=== PATIENT | male | born 1950 | race Caucasian/White ===

== ENCOUNTER → 2020-07-22 10:13 | Outpatient (CLI) | payer MEDICARE, SELFPAY ==
[2020-07-22 11:23] LABS: Coronavirus 19 IgG Antibody Positive (Negative); Coronavirus 19 IgM Antibody Negative (Negative)
== END ==
PROVIDERS: Visit Provider Internal Medicine Gastroenterology
DX: Z01.812 Encounter for preprocedural laboratory examination (principal); Z20.822 Contact with and (suspected) exposure to COVID-19; Z86.16 Personal history of COVID-19; Z12.11 Encounter for screening for malignant neoplasm of colon; K92.1 Melena
CPT/HCPCS: 36415; 86328

== ENCOUNTER 2020-07-23 07:16 | Day surgery (SDC) | payer MEDICARE, SELFPAY ==
[2020-07-20 16:08] VITALS: BMI 32.9
[2020-07-23 07:36] VITALS: BP 129/75; PULSE 65; RESP 18; TEMP 36.2; O2SAT 97
[2020-07-23 07:48] LABS: POC Glucose,Bedside 145 (70-110)
[2020-07-23 08:51] VITALS: O2SAT 97
--- NOTE | 2020-07-23 08:55 | P.PN_ITS ---
[facility] Anesthesia Checklist - Patient Identification Patient Identification: Arm Band - Structural Data Admitted From: Home Planned Operative Procedure/s: colonoscopy Consent for Planned Operative Procedure(s) Verified: Yes Verified Documents: Surgical Consent, History and Physical - NPO Status Verified Time NPO: 00:00 - Additional verifications Anesthesia Reactions: No - Airway Assessment C-Spine Mobility Assessed: Yes (mp2) TMJ Mobility Assessed: Yes Dentition: Good Dentition - Neurological Assessment Level of Consciousness: Awake, Alert - Anesthesia Plan Anesthesia Risk discussed: Yes Anesthesia Plan: Verified ASA Class: III Anesthesia Type: MAC [facility] History I have reviewed the patient's past medical history: Yes Medical History: Reports:: Cancer (kidney), Coronary Artery Disease, Diabetes Mellitus Type 2, Hyperlipidemia, Hypertension Denies:: Diabetes Mellitus Type 1, Internal Pacemaker, MRSA, Seizures *Have you ever received a pneumonia vaccine?: Yes *Have you received a flu vaccine this season?: Yes Anesthesia experience/problems:: nac Laterality Cases: Right: Arthroscopy Knee Other Surgeries: Yes: Coronary Stent, Other. No: Pacemaker Amputation: No Fractures: No - *Social History Smoking Status: Never smoker Alcohol Intake: never Substance Use Type: denies use *Occupational Status:: retired Housing: house *Travel in the last 8 weeks: None Family Hx:: No significant family history
--- NOTE | 2020-07-23 09:14 | P.PCN_ITS ---
[facility] Procedure Note Procedure Note:: Colonoscopy Procedure Report: Colonoscopy with cold snare polypectomy and snare cautery Endoscopist: Anirudh Arias II, MD Referring physician: Ange Fleming MD Date of Procedure: July 23, 2020 Equipment: Olympus 180 variable stiffness pediatric colonoscope Sedation: MAC sedation Indication: Mr. Maya is a 70-year-old gentleman who is here for initial colonoscopy/diagnostic colonoscopy secondary to a recently positive Cologuard test. The patient reports no abdominal pain, weight loss, change in his bowel habits or rectal bleeding. He reports no family history of colon cancer. He does have some mild chronic constipation. Procedure: Prior to the procedure, a history and physical exam was performed, and patient's medications and allergies were reviewed. The risks, benefits and alternatives of the sedation and procedure were discussed with the patient. All questions were answered and informed consent was obtained. The patient was brought to the procedure room. Patient identification and proposed procedure were verified by the physician and the nurse. The patient was placed in a left lateral decubitus position and the scope was passed under direct vision. Throughout the procedure, the patient's blood pressure, pulse, and oxygen saturations were monitored continuously. The colonoscopy was accomplished without difficulty. The patient tolerated the procedure well. Findings: On digital rectal examination there was normal rectal tone. There were no external hemorrhoids. The prostate was 2+, smooth, soft, symmetric without nodules. The colonoscope was introduced through the anal canal to the rectum and advanced to the cecum. The ileocecal valve and appendiceal orifice were identified. The scope was advanced a short distance into the ileum which appeared grossly normal. The scope was then withdrawn into the colon. There were 8 colon polyps (transverse x1 (8 mm), descending x2 (4 and 7 mm), sigmoid x1 (5 mm) and distal sigmoid x2 (4 and 20 mm)) which were all removed via cold snare polypectomy. The largest polyp was removed via snare cautery. Upon retroflexion within the rectum there were grade 1-2 internal hemorrhoids.The preparation was fair to good throughout with Miles Preparation Score of 7 out of 9. The cecal time was 18 minutes. Impression: 1. Colonic polyps x8 2. Grade 1-2 internal hemorrhoids Plan: The largest polyp (sigmoid polyp 20 mm) is likely an advanced adenoma. Based upon the number, size and category of polyps and the bowel preparation, I would recommend repeat surveillance colonoscopy again in 1 year.
[2020-07-23 09:15] VITALS: BP 101/58; PULSE 51; RESP 18; O2SAT 94
[2020-07-23 09:25] VITALS: BP 126/64; PULSE 47; RESP 18; O2SAT 96
[2020-07-23 09:35] VITALS: BP 123/78; PULSE 46; RESP 18; O2SAT 98
[2020-07-23 10:15] VITALS: BP 135/73; PULSE 58; RESP 18; O2SAT 97
== END 2020-07-23 10:18 | disposition home or self-care (01) ==
LOC: OUTP 07:20
PROVIDERS: PCP Family Medicine; Visit Provider Internal Medicine Gastroenterology
PROC: 0DJD8ZZ Inspection of Lower Intestinal Tract, Via Natural or Artificial Opening Endoscopic (ICD-10-PCS; CPT 45378; principal; 2020-07-23 08:30)
DX: K63.5 Polyp of colon (principal); K64.0 First degree hemorrhoids; Z85.528 Personal history of other malignant neoplasm of kidney; E11.9 Type 2 diabetes mellitus without complications; I10 Essential (primary) hypertension; E78.5 Hyperlipidemia, unspecified; I25.10 Atherosclerotic heart disease of native coronary artery without angina pectoris; Z95.5 Presence of coronary angioplasty implant and graft; Z88.0 Allergy status to penicillin; Z88.8 Allergy status to other drugs, medicaments and biological substances; Z79.82 Long term (current) use of aspirin; Z79.899 Other long term (current) drug therapy
CPT/HCPCS: 45385; 82962; 88305

== ENCOUNTER → 2022-03-28 12:33 | Outpatient (CLI) | payer MEDICARE, SELFPAY ==
--- NOTE | 2022-03-28 12:41 | XR_ITS ---
FINAL REPORT CLINICAL HISTORY: foot pain FINDINGS: 3 weight-bearing views of the right foot were obtained. There is no acute fracture or dislocation. There are mild degenerative changes at the 1st MTP joint. There is a posterior calcaneal spur. There is a subchondral cyst versus osteochondral lesion in the 1st metatarsal head. The soft tissues are unremarkable. IMPRESSION: Mild degenerative change the 1st MTP joint with a subchondral cyst versus osteochondral lesion in the 1st metatarsal head. Reviewed, Interpreted and Dictated by John Robertson III, MD Transcribed by Aaron Umaña Authenticated and [facility]
--- NOTE | 2022-03-28 12:41 | XR_ITS ---
FINAL REPORT CLINICAL HISTORY: foot pain FINDINGS: 3 weight-bearing views of the left foot were obtained. There is no acute fracture or dislocation. There is postoperative change to the distal fibula. There are mild degenerative changes. Calcaneal spurs are present. The soft tissues are unremarkable. IMPRESSION: Mild degenerative change. Reviewed, Interpreted and Dictated by John Robertson III, MD Transcribed by Aaron Umaña Authenticated and . [facility]
== END ==
PROVIDERS: PCP Family Medicine; Visit Provider Nurse Practitioner Family
DX: M79.671 Pain in right foot (principal); M79.672 Pain in left foot
CPT/HCPCS: 73630

== ENCOUNTER → 2022-12-06 16:21 | Outpatient (CLI) | payer MEDICARE, SELFPAY | PROVIDERS: Visit Provider Nurse Practitioner Family | DX: B35.1 Tinea unguium (principal); E11.9 Type 2 diabetes mellitus without complications; L60.8 Other nail disorders; B95.7 Other staphylococcus as the cause of diseases classified elsewhere; Z79.84 Long term (current) use of oral hypoglycemic drugs | CPT/HCPCS: 87070; 87077; 87102; 87186; 87205; 87206 ==

== ENCOUNTER → 2022-12-12 09:51 | Outpatient (CLI) | payer MEDICARE, SELFPAY ==
--- NOTE | 2022-12-12 09:57 | US_ITS ---
FINAL REPORT CLINICAL HISTORY: Decreased pulses in lower extremities, smoker, HTN, DM, hyperlipidemia, bilateral claudication, hyperlipidemia FINDINGS: COMPLETE ANKLE/BRACHIAL INDICES BILATERAL Complete ankle brachial indices were obtained. The right NOLAN is 1.3. The left NOLAN is 1.3. IMPRESSION: ABIs are within normal limits bilaterally. Reviewed, Interpreted and Dictated by John Robertson III, MD Transcribed by Zoë Chappell Authenticated and [facility]
== END ==
PROVIDERS: Visit Provider Nurse Practitioner Family
DX: E11.65 Type 2 diabetes mellitus with hyperglycemia (principal); R09.89 Other specified symptoms and signs involving the circulatory and respiratory systems; Z79.84 Long term (current) use of oral hypoglycemic drugs
CPT/HCPCS: 93923

== ENCOUNTER → 2023-05-15 11:26 | Outpatient (CLI) | payer MEDICARE, SELFPAY ==
[2023-05-15 12:02] LABS: Basophils % 0.4 % (0.1-2.0); Eosinophils # 0.2 K/mm3 (0.0-0.4); Eosinophils % 2.4 % (0.1-12.0); Hematocrit 42.7 % (42.0-52.0); Hemoglobin 13.6 g/dL (14.1-18.0); Lymphocytes # 2.8 K/mm3 (0.7-4.5); Mean Corpuscular HGB Conc 31.7 g/dL (31.8-35.4); Mean Corpuscular Hemoglobin 24.1 pg (27.0-31.2); Mean Corpuscular Volume 75.8 fl (80-94); Mean Platelet Volume 8.6 fl (7.4-10.4); Monocytes # 0.7 K/mm3 (0.1-1.0); Monocytes % 6.7 % (1.7-9.3); Neutrophils # 6.5 K/mm3 (1.8-7.8); Neutrophils % 63.5 % (37.0-80.0); Platelet Count 279 K/mm3 (142-424); Red Blood Count 5.63 M/mm3 (4.60-6.20); Red Cell Distribution Width 16.6 % (11.5-17.5); White Blood Count 10.3 K/mm3 (4.8-10.8)
[2023-05-15 12:46] LABS: Chloride 102 mmol/L (98-107); Potassium 4.1 mmoL/L (3.5-5.1); Sodium 138 mmol/L (136-145)
[2023-05-15 12:48] LABS: Blood Urea Nitrogen 29 mg/dl (9-20); Estimated Glomerular Filt Rate 54 ml/min (>60); GFR (African American) 65 ML/MIN (>60)
[2023-05-15 12:49] LABS: Alanine Aminotransferase 40 U/L (12-78); Albumin/Globulin Ratio 2.1 (1.1-1.8); Alkaline Phosphatase 75 U/L (38-126); Anion Gap 9.1 mEq/L (5-15); Aspartate Amino Transferase 32 U/L (17-59); Bilirubin,Total 0.5 mg/dl (0.2-1.3); Calcium 8.8 mg/dl (8.4-10.2); Carbon Dioxide 31 mmol/L (22.0-30.0); Globulin 1.9 g/dL (1.3-3.2); Glucose 107 mg/dl (74-100); Total Protein,Serum 5.9 g/dl (6.3-8.2)
[2023-05-15 12:57] LABS: C-Reactive Protein 0.5 mg/L (0-4)
[2023-05-15 13:11] LABS: Erythrocyte Sedimentation Rate 3 mm/hr (0-20)
[2023-05-21 09:20] LABS: 1,25 Dihydroxy Vitamin D 30 pg/mL (.); 1,25-Dihydroxy, Vitamin D-2 <10 pg/mL (.); 1,25-Dihydroxy, Vitamin D-3 30 pg/mL (.)
== END ==
PROVIDERS: PCP Family Medicine; Visit Provider Nurse Practitioner Family
DX: R60.9 Edema, unspecified (principal); L60.0 Ingrowing nail; E66.9 Obesity, unspecified; Z68.33 Body mass index [BMI] 33.0-33.9, adult; Z79.899 Other long term (current) drug therapy
CPT/HCPCS: 36415; 80053; 82652; 85025; 85651; 86140